=== PATIENT | female | born 1975 | race Caucasian/White ===

== ENCOUNTER 2016-08-26 08:20 | Emergency (ER) | payer MEDICAID, OTHER ==
[~2016-08-26] VITALS: Wt 81.0 kg
[~2016-08-26 08:20] MED LIST: HYDR-762 PO; IBUP200C11 PO; LEVO125T75 PO; ZOF8 PO
[2016-08-26] MEDS ORDERED: SOD CHLORIDE 0.9% 1,000 ML IV STA (09:12)
[2016-08-26] MEDS ORDERED: KETOROLAC 30 MG INJ IV STA (09:12)
[2016-08-26] MEDS ORDERED: ONDANSETRON 4 MG INJ IV STA (09:12)
[2016-08-26 10:05] LABS: BASOPHILS % 0.4 % (0.0-2.0); EOSINOPHILS # 0.2 10^3/ul (0.0-0.5); EOSINOPHILS % 2.6 % (0.0-7.0); HEMATOCRIT 38.7 % (37.0-47.0); HEMOGLOBIN 13.1 g/dl (12.0-16.0); LYMPHOCYTES # 2.1 10^3/ul (0.8-2.9); LYMPHOCYTES % 32.5 % (15.0-51.0); MEAN CORPUSCULAR HEMOGLOBIN 30.2 pg (29.0-33.0); MEAN CORPUSCULAR HGB CONC 33.8 g/dl (32.0-37.0); MEAN CORPUSCULAR VOLUME 89.3 fl (82.0-101.0); MEAN PLATELET VOLUME 9.4 fl (7.4-10.4); MONOCYTE # 0.4 10^3/ul (0.3-0.9); MONOCYTES % 6.7 % (0.0-11.0); NEUTROPHIL # 3.7 10^3/ul (1.6-7.5); NEUTROPHILS % 57.8 % (39.0-77.0); PLATELET COUNT 251 10^3/UL (140-440); RED BLOOD COUNT 4.34 10^6/ul (4.20-5.40); RED CELL DISTRIBUTION WIDTH 12.8 % (11.5-14.5); UNCORRECTED WBC 6.3 10^3/ul (4.8-10.8); WHITE BLOOD COUNT 6.3 10^3/ul (4.8-10.8)
[2016-08-26 10:09] LABS: CONDITION 1
[2016-08-26 10:10] LABS: POTASSIUM 4.1 mmol/L (3.5-5.1)
[2016-08-26 10:12] LABS: ALBUMIN/GLOBULIN RATIO 1.21; BILIRUBIN,INDIRECT 0.6 mg/dl (0-1.1); BILIRUBIN,TOTAL 0.6 mg/dl (0.2-1.3); CREATININE 0.64 mg/dl (0.44-1.00); TOTAL PROTEIN 7.3 g/dl (6.1-8.1)
[2016-08-26 10:13] LABS: CALCIUM 9.2 mg/dl (8.4-10.2)
--- NOTE | 2016-08-26 11:04 | RADRPT ---
PROCEDURE: CT Abdomen and Pelvis without contrast. CLINICAL INDICATION: Left flank pain. TECHNIQUE: CT scan of the abdomen and pelvis without contrast was performed on a multi-slice [facility] without intravenous contrast. Coronal and sagittal reformatted images were obtained from the axial source images. Images were reviewed on a high-resolution PACS workstation. One or more of the following does reduction techniques were used: Automated exposure control; adjustment of the mA an d/or kV according to patient size; use of the aorta of reconstruction technique. The total exam CTD I equals 16.64 mGy and the total exam DLP equals 991.01 mGy-cm. COMPARISON: Abdominal ultrasound 01/17/2015 FINDINGS: The lung bases are clear. Heart size is normal, and there is no evidence of pericardial thickening or effusion. The liver, spleen, and pancreas are normal given limitations of a noncontrast CT examination. A gal lstone is identified within the gallbladder. The gallbladder is predominantly otherwise collapsed. The adrenal glands are normal. The kidneys without renal calculus or hydronephrosis. No calcificat ions are seen along the course of the bilateral ureters. The aorta is of normal caliber. There are a few scattered atherosclerotic calcifications present. T here is no retroperitoneal lymph node enlargment. There is no evidence of large or small bowel obstruction. There is questionable mild thickening of the proximal jejunum which may be simply related to underdistension. There is mild retained colonic stool. A normal appendix is identified. No free fluid or fluid collections are identified. No in flammatory changes are seen. There is a tiny periumbilical hernia containing only fat. Uterus is present and mildly heterogeneous. There is a small amount of pelvic free fluid, which may be physiologic. No enlarged pelvic sidewall lymph nodes are seen. The bladder is within normal blackwood its. The inguinal regions are unremarkable. There are mild degenerative change of the spine. IMPRESSION: 1. Questionable mild thickening of the proximal jejunum is likely related to underdistension. Ashu mmend correlation with enteritis. 2. No definitive evidence of acute intra-abdominal or pelvic process. No CT evidence of urolithias is. 3. Cholelithiasis. 4. Atherosclerotic vascular disease. 5. Tiny periumbilical hernia containing only fat. 6. Small pelvic free fluid, likely physiologic. 7. Suggested heterogeneity of the uterus. This can be further evaluated with pelvic ultrasound if clinically indicated. RPTAT: AA .Jim Hoffman MD, Date Time Electronically viewed and signed by .Jim Hoffman MD, MD on 08/26/2016 11:04 .B/
[2016-08-26 11:24] LABS: ADD UMIC YES; URINE BILIRUBIN (Dip) NEGATIVE (NEGATIVE); URINE BLOOD (Dip) 1+ (NEGATIVE); URINE COLOR LT. YELLOW (YELLOW); URINE GLUCOSE (Dip) NEGATIVE (NEGATIVE); URINE KETONES (Dip) NEGATIVE (NEGATIVE); URINE LEUKOCYTE ESTERASE (Dip) NEGATIVE (NEGATIVE); URINE NITRITE (Dip) NEGATIVE (NEGATIVE); URINE TOTAL PROTEIN (Dip) NEGATIVE (NEGATIVE); URINE UROBILINOGEN (Dip) 0.2 E.U./dL (0.1-1.0)
[2016-08-26 11:55] LABS: SQUAMOUS EPITHELIAL CELL,UR FEW
[2016-08-26 13:02] VITALS: BP 128/68; PULSE 77; RESP 18
--- NOTE | 2016-08-26 13:10 | ERD ---
DATE OF SERVICE: 08/26/2016 HISTORY OF PRESENT ILLNESS: The patient is a 41-year-old female coming in complaining of dysuria an d hematuria for 4 months. Patient states that she had an ultrasound where they found a possible mayi cification within the kidney. The patient has been sent to the ER for a CT scan. She states that the symptoms have been going on for the last 2 weeks. They come and go. She does not know what cau ses them or resolves them. She has had no fever, has hematuria. Has no abdominal pain. Has mild d ysuria. MEDICAL HISTORY: Hypothyroidism. ALLERGIES TO MEDICATIONS: DENIES. SURGICAL HISTORY: Denies. SOCIAL HISTORY: Denies. REVIEW OF SYSTEMS: A 12-point review of systems was done. Refer to HPI for positives, all other sy stems negative. PHYSICAL EXAMINATION VITAL SIGNS: Temperature is 98.8, pulse 79, blood pressure is 140/72, respiratory rate 21, O2 satur ation 100% on room air. Pain intensity is 7/10. GENERAL: The patient is well-appearing, well-nourished, no acute distress. HEENT: Atraumatic. Conjunctivae are pink. Pupils equal, round, and reactive to light. There is no s cleral icterus. Tympanic membranes clear bilaterally. Oropharynx clear. No nystagmus or photophobia . CHEST: Clear to auscultation bilaterally. There are no rales, wheezes or rhonchi. HEART: Regular rate and rhythm. No murmurs, clicks, rubs or gallops. No S3 or S4. ABDOMEN: Soft, nontender and nondistended. Good bowel sounds. No rebound or guarding. No gross niesha tonitis. No gross organomegaly or masses. No Gordon sign or McBurney point tenderness. BACK: No midline or flank tenderness. SKIN: There is no apparent rash or petechia. The skin is warm and dry. EMERGENCY ROOM COURSE: The patient had blood work done in the ER. CBC is within normal limits. CM P was within normal limits and urine showed 1+ hemoglobin, negative leukocytes, negative nitrites. The patient had a CT abdomen and pelvis without contrast that showed: 1. Questionable mild thickening of the proximal jejunum is likely related to under distention. Rec ommend correlation with enteritis. 2. No definitive evidence of acute intra-abdominal or pelvic process. No CT evidence of urolithia sis. 3. Cholelithiasis. 4. Atherosclerotic vascular disease. 5. Tiny periumbilical hernia containing only fat. 6. Small pelvic free fluid, likely physiologic. 7. Suggested the heterogeneity of the uterus can be further evaluated with pelvic ultrasound if cli nically indicated. DIAGNOSIS: Hematuria. MEDICAL DECISION MAKING: I have low suspicion for urolithiasis or septic stones. Low suspicion for pelvic emergency or abdominal emergency. The patient's exam is not concerning. Low suspicion for UTI as the patient's urine is within normal limits. DISCHARGE: The patient is discharged stable. Patient is told to follow up with primary care within 1 to 2 days for closer evaluation. The patient was told if symptoms progress or worsen to return t o the ER. All other questions answered at time of discharge. Discharge summary given at the time o f departure. Patient understood and complied with plan. Dictated By: GEORGIE ESPINOZA for ZACHARY SULLIVAN/SARAH Conf#: [id number] DID#: [id number]
== END 2016-08-26 13:02 | disposition home or self-care (01) ==
LOC: FTE 08:20
DX: R31.9 Hematuria, unspecified (principal); E03.9 Hypothyroidism, unspecified
CPT/HCPCS: 36415; 74176; 80053; 81001; 81003; 83690; 85025; 96374; 96375; J1885; J2405; J7030; Z7502